=== PATIENT | male | born 1995 | race Two or more races ===

== ENCOUNTER 2019-04-05 19:48 | Emergency (ER) | payer OTHER ==
[~2019-04-05] VITALS: Ht 175.3 cm; Wt 93.0 kg
[2019-04-05] MEDS ORDERED: CARVEDILOL ER40 MG (20:01)
[2019-04-05] MEDS ORDERED: LOSARTAN POTASS25 MG (20:01)
== END 2019-04-05 22:50 | disposition home or self-care (01) ==
LOC: ER 19:48
DX: R20.0 Anesthesia of skin (principal); R00.2 Palpitations; F06.4 Anxiety disorder due to known physiological condition